=== PATIENT | female | born 1950 | race Asian ===

== ENCOUNTER → 2016-05-17 | Outpatient (CLI) | payer MEDICARE, OTHER ==
[2016-05-17 09:46] LABS: Basophils # (auto) 0 uL; Basophils % (auto) 0.4 % (0.0-2.0); DEFINITIVE VIEW TRANSMISSION; Eosinophils # (auto) 0.1 uL; Eosinophils % (auto) 1.6 % (0.0-7.0); Hematocrit 47.4 % (36.0-46.0); Hemoglobin 15.1 g/dL (12.2-16.2); Lymphocytes # (auto) 3.6 uL; Lymphocytes % (auto) 40.9 % (10.0-50.0); Mean Corpuscular Hgb Conc. 31.8 g/dL (32.0-36.0); Mean Corpuscular Volume 81.7 fL (80.0-100.0); Mean Platelet Volume 9.1 fL (7.4-10.4); Monocytes # (auto) 0.4 uL; Monocytes % (auto) 4.7 % (0.0-12.0); Neutrophils # (auto) 4.6 uL; Neutrophils % (auto) 52.4 % (37.0-80.0); Platelet Count (auto) 246 10^3/uL (140-450); Red Cell Distribution Width 13.3 % (11.6-16.0); White Blood Cell 8.7 10^3/uL (4.4-10.8)
[2016-05-17 09:56] LABS: Urine Bilirubin Negative (Negative); Urine Color Yellow (Yellow); Urine Glucose Normal (Normal); Urine Ketone Negative (Negative); Urine Nitrite Negative (Negative); Urine RBC 2 /hpf (0 - 4); Urine Urobilinogen Normal (Negative); Urine pH 5.5 (5.0-8.0)
[2016-05-17 09:57] LABS: Urine Blood 1+ /uL (Negative)
[2016-05-17 10:01] LABS: Albumin 4.3 g/dL (3.4-5.0); BUN/Creatinine Ratio 22.7; Bilirubin, Total 0.7 mg/dL (0.2-1.0); Calcium 9.5 mg/dL (8.5-10.1); Potassium 3.5 mmol/L (3.5-5.1); Total Protein 8.4 g/dL (6.4-8.2)
== END | disposition home or self-care (01) ==
LOC: LAB 07:42
PROVIDERS: ATTEND Internal Medicine
DX: Z00.00 Encounter for general adult medical examination without abnormal findings (principal)
CPT/HCPCS: 36415; 80053; 80061; 81001; 82270; 84443; 85025; 85049

== ENCOUNTER → 2017-01-09 | Outpatient (CLI) | payer MEDICARE, OTHER ==
[2017-01-09 07:42] LABS: Urine Bilirubin Negative (Negative); Urine Blood TRACE /uL (Negative); Urine Color Yellow (Yellow); Urine Glucose Normal (Normal); Urine Ketone Negative (Negative); Urine Nitrite Negative (Negative); Urine RBC 1 /hpf (0 - 4); Urine Squamous Epithelial Cell FEW /hpf (<5); Urine Urobilinogen Normal (Negative)
[2017-01-09 07:51] LABS: BUN/Creatinine Ratio 14.9; Bilirubin, Total 0.8 mg/dL (0.2-1.0); Calcium 9.1 mg/dL (8.5-10.1); Potassium 3.9 mmol/L (3.5-5.1)
== END | disposition home or self-care (01) ==
LOC: LAB 07:06
PROVIDERS: ATTEND Internal Medicine
DX: E78.2 Mixed hyperlipidemia (principal); I11.0 Hypertensive heart disease with heart failure; I50.9 Heart failure, unspecified; E55.9 Vitamin D deficiency, unspecified
CPT/HCPCS: 36415; 80053; 80061; 81001; 82306

== ENCOUNTER → 2017-06-13 | Outpatient (CLI) | payer MEDICARE, OTHER ==
[2017-06-13 16:36] LABS: Basophils # (auto) 0.1 uL; Basophils % (auto) 0.6 % (0.0-2.0); Eosinophils # (auto) 0.1 uL; Eosinophils % (auto) 1.3 % (0.0-7.0); Hematocrit 44.8 % (36.0-46.0); Hemoglobin 14.8 g/dL (12.2-16.2); Lymphocytes # (auto) 3.2 uL; Lymphocytes % (auto) 34.6 % (10.0-50.0); Mean Corpuscular Hemoglobin 27.1 pg (28.0-32.0); Mean Corpuscular Hgb Conc. 33.1 g/dL (32.0-36.0); Mean Corpuscular Volume 81.8 fL (80.0-100.0); Monocytes # (auto) 0.5 uL; Monocytes % (auto) 5.4 % (0.0-12.0); Neutrophils # (auto) 5.4 uL; Neutrophils % (auto) 58.1 % (37.0-80.0); Nucleated Red Blood Cells % 0.1 %; Platelet Count (auto) 261 10^3/uL (140-450); Red Blood Cells 5.48 10^6/uL (4.0-5.20); Red Cell Distribution Width 13.9 % (11.8-14.3); White Blood Cell 9.3 10^3/uL (4.4-10.8)
[2017-06-13 17:25] LABS: Alanine Aminotransferase 32 U/L (13-56); Aspartate Aminotransferase 22 U/L (15-37)
== END | disposition home or self-care (01) ==
LOC: LAB 15:49
PROVIDERS: ATTEND Internal Medicine
DX: E78.00 Pure hypercholesterolemia, unspecified (principal); E55.9 Vitamin D deficiency, unspecified
CPT/HCPCS: 36415; 82306; 84450; 84460; 85025; 85652

== ENCOUNTER 2018-08-09 21:43 | Emergency (ER) | payer MEDICARE, OTHER ==
[~2018-08-09] VITALS: Ht 160 cm; Wt 64.4 kg
[2018-08-09] MEDS ORDERED: cloNIDine HCL 0.1 MG TAB PO ONE (22:00)
[2018-08-09 22:11] LABS: Basophils # (auto) 0.1 uL; Monocytes # (auto) 0.8 uL; Monocytes % (auto) 7.2 % (0.0-12.0)
[2018-08-09 22:13] LABS: Basophils % (auto) 1.1 % (0.0-2.0); Eosinophils # (auto) 1.5 uL; Eosinophils % (auto) 13.2 % (0.0-7.0); Hematocrit 44.8 % (36.0-46.0); Hemoglobin 14.7 g/dL (12.2-16.2); Lymphocytes # (auto) 2.7 uL; Lymphocytes % (auto) 24.4 % (10.0-50.0); Mean Corpuscular Hemoglobin 26.8 pg (28.0-32.0); Mean Corpuscular Hgb Conc. 32.8 g/dL (32.0-36.0); Mean Corpuscular Volume 81.8 fL (80.0-100.0); Neutrophils % (auto) 54.1 % (37.0-80.0); Platelet Count (auto) 238 10^3/uL (140-450); Red Blood Cells 5.47 10^6/uL (4.0-5.20); Red Cell Distribution Width 14.1 % (11.8-14.3); White Blood Cell 11.2 10^3/uL (4.4-10.8)
[2018-08-09 22:24] LABS: Chloride 106 mmol/L (98-107); Potassium 3.8 mmol/L (3.5-5.1); Sodium 139 mmol/L (136-145)
[2018-08-09 22:28] LABS: Anion Gap 5 (5-15); Blood Urea Nitrogen 16 mg/dL (7-18); Calcium 8.9 mg/dL (8.5-10.1); Carbon Dioxide 28 mmol/L (21-32); Glucose 98 mg/dL (74-106)
[2018-08-09 22:31] LABS: Alanine Aminotransferase 25 U/L (13-56); Aspartate Aminotransferase 17 U/L (15-37); GFR African American 76 mL/min; GFR Non-African American 63 mL/min
[2018-08-09 22:36] LABS: Alkaline Phosphatase 124 U/L (45-117); Bilirubin, Total 0.5 mg/dL (0.2-1.0); Magnesium 2.4 mg/dL (1.6-2.6)
[2018-08-10] MEDS ORDERED: ALBUTEROL SULF 2.5 MG/0.5ML(0.5%) NEB SOLN NEB ONE (07:45)
[2018-08-10] MEDS ORDERED: LEVOFLOXACIN 500MG 100 ML IV ONE (07:45)
[2018-08-10 09:05] VITALS: BP 137/63
== END 2018-08-10 09:27 | disposition home or self-care (01) ==
LOC: ER 21:44
DX: J40 Bronchitis, not specified as acute or chronic (principal); I10 Essential (primary) hypertension; E78.5 Hyperlipidemia, unspecified
CPT/HCPCS: 36415; 71045; 80053; 83735; 84484; 85025; 85379; 93005; 94640; 94761; 96365; 99284; J1956; J7611

== ENCOUNTER → 2018-10-08 | Outpatient (CLI) | payer MEDICARE, OTHER | END | disposition home or self-care (01) | LOC: LAB 07:49 | PROVIDERS: ATTEND Internal Medicine | DX: Z12.11 Encounter for screening for malignant neoplasm of colon (principal) | CPT/HCPCS: 82270 ==

== ENCOUNTER → 2019-02-05 | Outpatient (CLI) | payer MEDICARE, OTHER ==
[2019-02-05 08:23] LABS: Basophils # (auto) 0.1 uL; Basophils % (auto) 0.8 % (0.0-2.0); Eosinophils # (auto) 0.3 uL; Eosinophils % (auto) 4.2 % (0.0-7.0); Hematocrit 45.9 % (36.0-46.0); Hemoglobin 15.2 g/dL (12.2-16.2); Lymphocytes # (auto) 2.8 uL; Lymphocytes % (auto) 36.5 % (10.0-50.0); Mean Corpuscular Hemoglobin 27.3 pg (28.0-32.0); Mean Corpuscular Volume 82.6 fL (80.0-100.0); Monocytes # (auto) 0.4 uL; Monocytes % (auto) 4.9 % (0.0-12.0); Neutrophils # (auto) 4.1 uL; Neutrophils % (auto) 53.6 % (37.0-80.0); Nucleated Red Blood Cells % 0.1 %; Platelet Count (auto) 236 10^3/uL (140-450); Red Blood Cells 5.56 10^6/uL (4.0-5.20); Red Cell Distribution Width 13.8 % (11.8-14.3); White Blood Cell 7.6 10^3/uL (4.4-10.8)
[2019-02-05 09:02] LABS: Calcium 9.2 mg/dL (8.5-10.1); Potassium 3.9 mmol/L (3.5-5.1)
[2019-02-05 09:09] LABS: BUN/Creatinine Ratio 13.1; Total Protein 8.1 g/dL (6.4-8.2)
== END | disposition home or self-care (01) ==
LOC: LAB 08:10
PROVIDERS: ATTEND Internal Medicine
DX: E78.1 Pure hyperglyceridemia (principal); J30.2 Other seasonal allergic rhinitis
CPT/HCPCS: 36415; 80053; 80061; 82977; 84439; 84443; 85025

== ENCOUNTER → 2019-08-02 | Outpatient (CLI) | payer MEDICARE, OTHER ==
[2019-08-02 10:41] LABS: Band Neutrophils % (manual) 0; Basophils % (manual) 0 (0.0-2.0); Blast Cells 0; Metamyelocytes % 0; Myelocytes % 0; Promyelocytes % 0
[2019-08-02 10:49] LABS: Hematocrit 45.6 % (36.0-46.0); Hemoglobin 15.1 g/dL (12.2-16.2); Mean Corpuscular Hgb Conc. 33.1 g/dL (32.0-36.0); Mean Corpuscular Volume 81.6 fL (80.0-100.0); Platelet Count (auto) 215 10^3/uL (140-450); Red Blood Cells 5.59 10^6/uL (4.0-5.20); Red Cell Distribution Width 13.7 % (11.8-14.3); White Blood Cell 9.1 10^3/uL (4.4-10.8)
[2019-08-02 11:04] LABS: Alanine Aminotransferase 18 U/L (13-56); Aspartate Aminotransferase 14 U/L (15-37)
[2019-08-02 11:18] LABS: Eosinophils % (manual) 10 (0-7); Lymphocytes % (manual) 33 (10.0-50.0); Monocytes % (manual) 5 (0-12); Reactive Lymphocytes 1
== END | disposition home or self-care (01) ==
LOC: LAB 10:26
PROVIDERS: ATTEND Internal Medicine
DX: E78.00 Pure hypercholesterolemia, unspecified (principal)
CPT/HCPCS: 36415; 84450; 84460; 85007; 85027; 85652

== ENCOUNTER → 2020-08-13 | Outpatient (CLI) | payer MEDICARE, OTHER ==
[2020-08-13 09:23] LABS: Basophils # (auto) 0.1 10 ^3/uL (0-0.2); Eosinophils # (auto) 0.7 10 ^3/uL (0-0.8); Monocytes # (auto) 0.4 10 ^3/uL (0-1.3); White Blood Cell 8.6 10^3/uL (4.4-10.8)
[2020-08-13 09:24] LABS: Urine Bacteria NONE SEEN /hpf (None Seen); Urine Blood 2+ /uL (Negative); Urine Specific Gravity 1.013 (1.001-1.035); Urine WBC 1 /hpf (0 - 5)
[2020-08-13 09:25] LABS: Basophils % (auto) 1.2 % (0.0-2.0); Eosinophils % (auto) 8.3 % (0.0-7.0); Hematocrit 45.3 % (36.0-46.0); Hemoglobin 15.2 g/dL (12.2-16.2); Lymphocytes % (auto) 35.4 % (10.0-50.0); Mean Corpuscular Hemoglobin 27.3 pg (28.0-32.0); Mean Corpuscular Hgb Conc. 33.6 g/dL (32.0-36.0); Mean Corpuscular Volume 81.3 fL (80.0-100.0); Monocytes % (auto) 4.4 % (0.0-12.0); Neutrophils # (auto) 4.4 10 ^3/uL (1.6-8.6); Neutrophils % (auto) 50.7 % (37.0-80.0); Nucleated Red Blood Cells % 0.3 %; Platelet Count (auto) 234 10^3/uL (140-450); Red Blood Cells 5.58 10^6/uL (4.0-5.20); Red Cell Distribution Width 13.8 % (11.8-14.3)
[2020-08-13 09:47] LABS: Albumin 3.9 g/dL (3.4-5.0); Calcium 9.4 mg/dL (8.5-10.1); Potassium 3.7 mmol/L (3.5-5.1)
[2020-08-13 09:51] LABS: BUN/Creatinine Ratio 14.1; Bilirubin, Total 0.7 mg/dL (0.2-1.0); Total Protein 7.8 g/dL (6.4-8.2)
== END | disposition home or self-care (01) ==
LOC: LAB 08:59
PROVIDERS: ATTEND Internal Medicine
DX: M81.0 Age-related osteoporosis without current pathological fracture (principal); J30.2 Other seasonal allergic rhinitis; E78.5 Hyperlipidemia, unspecified; E56.9 Vitamin deficiency, unspecified; E78.00 Pure hypercholesterolemia, unspecified
CPT/HCPCS: 36415; 80053; 80061; 81001; 82306; 82785; 84439; 84443; 85025; 85652

== ENCOUNTER → 2021-01-25 | Outpatient (CLI) | payer MEDICARE, OTHER ==
[2021-01-25 10:30] LABS: Basophils # (auto) 0.1 10 ^3/uL (0-0.2); Basophils % (auto) 0.7 % (0.0-2.0); Eosinophils # (auto) 0.2 10 ^3/uL (0-0.8); Eosinophils % (auto) 2.8 % (0.0-7.0); Hematocrit 45.5 % (36.0-46.0); Hemoglobin 15.1 g/dL (12.2-16.2); Lymphocytes # (auto) 2.8 10 ^3/uL (0.4-5.4); Lymphocytes % (auto) 38.7 % (10.0-50.0); Mean Corpuscular Hgb Conc. 33.3 g/dL (32.0-36.0); Mean Corpuscular Volume 81.1 fL (80.0-100.0); Monocytes # (auto) 0.4 10 ^3/uL (0-1.3); Monocytes % (auto) 5.2 % (0.0-12.0); Neutrophils # (auto) 3.9 10 ^3/uL (1.6-8.6); Neutrophils % (auto) 52.6 % (37.0-80.0); Nucleated Red Blood Cells % 0.1 %; Red Blood Cells 5.62 10^6/uL (4.0-5.20); Red Cell Distribution Width 14.1 % (11.8-14.3); White Blood Cell 7.3 10^3/uL (4.4-10.8)
[2021-01-25 11:10] LABS: Calcium 9.2 mg/dL (8.5-10.1); Potassium 3.9 mmol/L (3.5-5.1)
[2021-01-25 11:15] LABS: BUN/Creatinine Ratio 15.1
[2021-01-25 11:16] LABS: Bilirubin, Total 0.8 mg/dL (0.2-1.0)
== END | disposition home or self-care (01) ==
LOC: LAB 10:01
PROVIDERS: ATTEND Internal Medicine
DX: K11.20 Sialoadenitis, unspecified (principal)
CPT/HCPCS: 36415; 80053; 85025; 85652; 86235

== ENCOUNTER → 2021-07-29 | Outpatient (CLI) | payer MEDICARE, OTHER | END | disposition home or self-care (01) | LOC: LAB 09:02 | PROVIDERS: ATTEND Internal Medicine | DX: Z12.11 Encounter for screening for malignant neoplasm of colon (principal) | CPT/HCPCS: 82270 ==

== ENCOUNTER → 2022-12-13 | Outpatient (CLI) | payer MEDICARE, OTHER ==
[2022-12-13 08:17] LABS: Basophils # (auto) 0 10 ^3/uL (0-0.2); Eosinophils # (auto) 0.2 10 ^3/uL (0-0.8); Hemoglobin 14.5 g/dL (12.2-16.2); Monocytes # (auto) 0.5 10 ^3/uL (0-1.3); Neutrophils # (auto) 4.8 10 ^3/uL (1.6-8.6)
[2022-12-13 08:19] LABS: Basophils % (auto) 0.4 % (0.0-2.0); Eosinophils % (auto) 2.5 % (0.0-7.0); Hematocrit 44.3 % (36.0-46.0); Lymphocytes % (auto) 35.5 % (10.0-50.0); Mean Corpuscular Hemoglobin 26.5 pg (28.0-32.0); Mean Corpuscular Hgb Conc. 32.8 g/dL (32.0-36.0); Mean Corpuscular Volume 80.8 fL (80.0-100.0); Monocytes % (auto) 5.4 % (0.0-12.0); Neutrophils % (auto) 56.2 % (37.0-80.0); Nucleated Red Blood Cells % 0.5 %; Red Blood Cells 5.48 10^6/uL (4.0-5.20); Red Cell Distribution Width 13.9 % (11.8-14.3); White Blood Cell 8.6 10^3/uL (4.4-10.8)
[2022-12-13 09:01] LABS: Urine Bacteria NONE SEEN /hpf (None Seen); Urine Blood 1+ /uL (Negative); Urine Clarity Clear (Clear); Urine Color Yellow (Yellow); Urine Protein, UAD TRACE (Negative); Urine Urobilinogen Normal (Negative); Urine WBC 3 /hpf (0 - 5)
[2022-12-13 09:18] LABS: Potassium 4.2 mmol/L (3.5-5.1)
[2022-12-13 09:44] LABS: Albumin 3.9 g/dL (3.4-5.0); BUN/Creatinine Ratio 17.3 (10.0-20.0); Bilirubin, Total 0.9 mg/dL (0.2-1.0); Calcium 9.1 mg/dL (8.7-10.4); Total Protein 7.4 g/dL (6.4-8.2)
[2022-12-13 09:51] LABS: Erythrocyte Sedimentation Rate 7 mm/hr (0-20)
== END | disposition home or self-care (01) ==
LOC: LAB 08:00
PROVIDERS: ATTEND Internal Medicine
DX: E55.9 Vitamin D deficiency, unspecified (principal); E78.5 Hyperlipidemia, unspecified
CPT/HCPCS: 36415; 80053; 80061; 81001; 82270; 82306; 84439; 84443; 85025; 85652

== ENCOUNTER → 2023-05-29 | Outpatient (CLI) | payer MEDICARE, OTHER ==
[2023-05-29 14:51] LABS: Alanine Aminotransferase 15 U/L (7-40); Alkaline Phosphatase 80 U/L (46-116); Anion Gap 5 (5-15); Blood Urea Nitrogen 11 mg/dL (9-23); Calcium 9.6 mg/dL (8.5-10.1); Carbon Dioxide 28 mmol/L (20-30); Chloride 108 mmol/L (98-107); Glucose 80 mg/dL (74-106); Potassium 3.9 mmol/L (3.5-5.1); Sodium 141 mmol/L (136-145)
[2023-05-29 14:52] LABS: Albumin 4.7 g/dL (3.2-4.8); Aspartate Aminotransferase 20 U/L (13-40); Bilirubin, Total 0.8 mg/dL (0.2-1.0)
[2023-05-29 14:53] LABS: Total Protein 8.1 g/dL (5.7-8.2)
[2023-06-02 22:06] LABS: Vitamin D 25-Hydroxy 31 ng/mL (.); Vitamin D-2 25-Hydroxy <1.0 ng/mL (.); Vitamin D-3 25-Hydroxy 31 ng/mL (.)
== END | disposition home or self-care (01) ==
LOC: LAB 13:43
PROVIDERS: ATTEND Internal Medicine
DX: E55.9 Vitamin D deficiency, unspecified (principal); E78.00 Pure hypercholesterolemia, unspecified
CPT/HCPCS: 36415; 80053; 82306; 84439; 84443

== ENCOUNTER → 2023-12-11 | Outpatient (CLI) | payer MEDICARE, OTHER ==
[2023-12-11 08:26] LABS: Urine Bacteria None Seen /hpf (None Seen)
[2023-12-11 08:41] LABS: Basophils # (auto) 0 10 ^3/uL (0-0.2); Basophils % (auto) 0.6 % (0.0-2.0); Eosinophils # (auto) 0.3 10 ^3/uL (0-0.8); Eosinophils % (auto) 3.4 % (0.0-7.0); Hematocrit 45.1 % (36.0-46.0); Hemoglobin 14.8 g/dL (12.2-16.2); Lymphocytes # (auto) 2.8 10 ^3/uL (0.4-5.4); Lymphocytes % (auto) 35.1 % (10.0-50.0); Mean Corpuscular Hemoglobin 27.1 pg (28.0-32.0); Mean Corpuscular Hgb Conc. 32.9 g/dL (32.0-36.0); Mean Corpuscular Volume 82.6 fL (80.0-100.0); Monocytes # (auto) 0.4 10 ^3/uL (0-1.3); Monocytes % (auto) 4.6 % (0.0-12.0); Neutrophils # (auto) 4.5 10 ^3/uL (1.6-8.6); Neutrophils % (auto) 56.3 % (37.0-80.0); Red Blood Cells 5.46 10^6/uL (4.0-5.20); Red Cell Distribution Width 14.4 % (11.8-14.3); White Blood Cell 7.9 10^3/uL (4.4-10.8)
[2023-12-11 08:54] LABS: Urine Blood 1+ /uL (Negative); Urine Clarity Clear (Clear); Urine Color Light-Yellow (Yellow); Urine Protein, UAD Negative (Negative); Urine Specific Gravity 1.021 (1.001-1.035); Urine Urobilinogen Normal (Negative); Urine WBC 2 /hpf (0 - 5)
[2023-12-11 09:31] LABS: Erythrocyte Sedimentation Rate 10 mm/hr (0-20)
[2023-12-11 10:15] LABS: Alanine Aminotransferase 20 U/L (7-40); Albumin 4.4 g/dL (3.2-4.8); Alkaline Phosphatase 87 U/L (46-116); Anion Gap 2 (5-15); Aspartate Aminotransferase 16 U/L (13-40); Bilirubin, Total 0.9 mg/dL (0.2-1.0); Blood Urea Nitrogen 15 mg/dL (9-23); Calcium 9.7 mg/dL (8.7-10.4); Carbon Dioxide 28 mmol/L (20-30); Chloride 107 mmol/L (98-107); Cholesterol 201 mg/dL (< 200); Glucose 101 mg/dL (74-106); HDL Cholesterol 61 mg/dL (40-59); LDL Cholesterol 113 mg/dL (< 100); Sodium 137 mmol/L (136-145); Total Protein 7.5 g/dL (5.7-8.2); Triglycerides 142 mg/dL (< 150)
[2023-12-11 10:44] LABS: Free T4 (Free Thyroxine) 1.09 ng/dL (0.89-1.76)
[2023-12-11 11:00] LABS: Hepatitis B Surface Antibody Negative (Negative)
[2023-12-11 11:10] LABS: Hepatitis B Surface Antigen Negative (Negative)
[2023-12-11 11:32] LABS: Hepatitis B Core IgM Negative; Hepatitis C Antibody Negative (Negative)
[2023-12-12 07:07] LABS: Hepatitis B Core Total Antibod Negative (Negative)
[2023-12-12 08:06] LABS: Albumin 3.7 g/dL (2.9-4.4); Alpha-1-Globulin 0.2 g/dL (0.0-0.4); Alpha-2-Globulin 0.6 g/dL (0.4-1.0); Gamma Globulin 1.5 g/dL (0.4-1.8); Globulin Total 3.6 g/dL (2.2-3.9); Protein Total Serum 7.3 g/dL (6.0-8.5)
== END | disposition home or self-care (01) ==
LOC: LAB 08:10
PROVIDERS: ATTEND Internal Medicine
DX: Z12.11 Encounter for screening for malignant neoplasm of colon (principal); E78.00 Pure hypercholesterolemia, unspecified; E55.9 Vitamin D deficiency, unspecified; M79.2 Neuralgia and neuritis, unspecified
CPT/HCPCS: 36415; 80053; 80061; 81001; 82270; 82306; 82607; 84155; 84165; 84439; 84443; 85025; 85652; 86705; 86706; 86803; 87340

== ENCOUNTER 2024-10-28 08:29 | Inpatient (IN) | payer MEDICARE, OTHER ==
[~2024-10-28] VITALS: Ht 160 cm; Wt 67.7 kg
[2024-10-28] MEDS: SODIUM CHLORIDE 0.9% 1,000 ML IV ONE (08:45)
--- NOTE | 2024-10-28 08:46 | ED.PDOC ---
HPI (NEURO) HPI Comments 74 y/o F, with PMHx of HLD presents to the ED for CC of left sided headache. Patient states, she has been experiencing left-sided headache with associated left sided facial [id number]. Patient reports, associated symptoms of bilateral eye watering and difficulty when closing. Upon arrival to the ED, patient was found to be hypertensive with a blood pressure of 199/90mmHg; patient moved to Tx area for further care. Patient denies weakness, changes in gait, dizziness, nausea, or vomiting. No other symptoms or modifying factors present at this time. Time Seen by MD: 08:35 Primary Care Provider: KYLEK Reviewed Notes: Nurses Notes, Medications, Allergies Information Source: Patient Mode of Arrival: Ambulatory Severity: Moderate Headache Severity: Moderate Timing: Days Duration: Since onset Prehospital treatment: None Headache Location: Generalized Weakness Location: (L) Sided, Facial Onset: At rest Circumstances: Spontaneous Symptoms: None Before: Normal During: Awake After: Normal Mentation History of: None Modifying factors: Nothing Past Medical History PAST MEDICAL HISTORY: High Lipids Surgical History: CORK SLABS SAWYER History: No Pertinent C[employer] SAWYER History Family History Family History: Unknown Social History Smoker: Non-Smoker Alcohol: Denies ETOH Use Drugs: Denies Drug Use Lives In: Home Constitutional: denies: chills, diaphoresis, fatigue, fever, malaise, sweats, weakness, others EENTM: denies: blurred vision, double vision, ear bleeding, ear discharge, ear drainage, ear pain, ear ringing, eye pain, eye redness, hearing loss, mouth pain, mouth swelling, nasal discharge, nose bleeding, nose congestion, nose pain, photophobia, tearing, throat pain, throat swelling, voice changes, others Respiratory: denies: cough, hemoptysis, orthopnea, SOB at rest, shortness of breath, SOB with excertion, stridor, wheezing, others Cardiovascular: denies: chest pain, dizzy spells, diaphoresis, Dyspnea on exertion, edema, irregular heart beat, left arm pain, lightheadedness, palpitations, PND, syncope, others Gastrointestinal: denies: abdomen distended, abdominal pain, blood streaked bowels, constipated, diarrhea, dysphagia, difficulty swallowing, hematemesis, melena, nausea, poor appetite, poor fluid intake, rectal bleeding, rectal pain, vomiting, others Genitourinary: denies: abnormal vagina bleeding, burning, dyspareunia, dysuria, flank pain, frequency, hematuria, incontinence, pain, , vagina discharge, urgency, others Neurological: reports: headache; denies: dizziness, fainting, left sided numbness, left sided weakness, numbness, paresthesia, pre-existing deficit, right sided numbness, right sided weakness, seizure, speech problems, tingling, tremors, weakness, others Musculoskeletal: denies: back pain, gout, joint pain, joint swelling, muscle pain, muscle stiffness, neck pain, others Integumetry: denies: bruises, change in color, change in hair/nails, dryness, laceration, lesions, lumps, rash, wounds, others Allergic/Immunocompromised: denies: Difficulty Healing, Frequent Infections, Hives, Itching, others Hematologic/Lymphatic: denies: anemia, blood clots, easy bleeding, easy bruising, swollen glands, others Endocrine: denies: excessive hunger, excessive sweating, excessive thirst, excessive urination, flushing, intolerance to cold, intolerance to heat, unexplained weight gain, unexplained weight loss, others Psychiatric: denies: anxiety, bipolar disorder, depression, hopeless, panic disorder, schizophrenia, sleepless, suicidal, others All Other Systems: Reviewed and Negative Physical Exam General Appearance: No Apparent Distress, Normal HEENT: Normal ENT Inspection, Pharynx Normal Neck: Full Range of Motion, Non-Tender, Normal, Normal Inspection Respiratory: Chest Non-Tender, Lungs Clear, No Accessory Muscle Use, No Respiratory Distress, Normal Breath Sounds Cardiovascular: No Edema, No Murmur, No Gallop, Normal Peripheral Pulses, Regular Rate/Rhythm Breast Exam: Deferred Gastrointestinal: No Organomegaly, Non Tender, No Pulsatile Mass, Normal Bowel Sounds, Soft Genitalia: Deferred Pelvic: Deferred Rectal: Deferred Extremities: No calf tenderness, Normal capillary refill, Normal inspection, Normal range of motion, Non-tender, No pedal edema Musculoskeletal : Apperance: Normal Neurologic: Alert, radiology teacher II-XII nml as Tested, Facial Droop (left sided/ left forehead), Normal Affect, Normal Mood, No Sensory Deficits, Other (difficulty closing eyes) Cerebellar Function: Normal Reflexes: Normal Skin: Dry, Normal Color, Warm Lymphatic: No Adenopathy Was a procedure done? Was a procedure done?: No Differential Diagnosis (SZ) Seizure: N/A CVA: Park's Palsy, CVA, Electrolyte Imbalance, TIA General Weakness: N/A Headache: Migraine X-Ray, Labs, Meds, VS Vital Signs Date Time Temp Pulse Resp B/P (MAP) Pulse Ox O2 Delivery O2 Flow Rate FiO2 10/28/24 09:51 Room Air* 0 21 10/28/24 09:51 98.4 79 14 174/59 (97) 97 98.4 10/28/24 09:50 174/59 10/28/24 09:50 98.5 10/28/24 08:42 98.7 89 17 186/104 (131) 96 98.7 Lab Test 10/28/24 09:23 Range/Units White Blood Count 7.8 4.4-10.8 10^3/uL Red Blood Count 5.63 H 4.0-5.20 10^6/uL Hemoglobin 15.2 12.2-16.2 g/dL Hematocrit 45.4 36.0-46.0 % Mean Corpuscular Volume 80.6 80.0-100.0 fL Mean Corpuscular Hemoglobin 27.0 L 28.0-32.0 pg Mean Corpuscular Hemoglobin Concent 33.5 32.0-36.0 g/dL Red Cell Distribution Width 14.1 11.8-14.3 % Platelet Count 230 140-450 10^3/uL Mean Platelet Volume 7.7 6.9-10.8 fL Neutrophils (%) (Auto) 61.9 37.0-80.0 % Lymphocytes (%) (Auto) 29.0 10.0-50.0 % Monocytes (%) (Auto) 5.7 0.0-12.0 % Eosinophils (%) (Auto) 2.9 0.0-7.0 % Basophils (%) (Auto) 0.5 0.0-2.0 % Neutrophils # (Auto) 4.8 1.6-8.6 10 ^3/uL Lymphocytes # (Auto) 2.3 0.4-5.4 10 ^3/uL Monocytes # (Auto) 0.4 0-1.3 10 ^3/uL Eosinophils # (Auto) 0.2 0-0.8 10 ^3/uL Basophils # (Auto) 0 0-0.2 10 ^3/uL Nucleated Red Blood Cells 0.0 % Sodium Level 142 136-145 mmol/L Potassium Level 4.1 3.5-5.1 mmol/L Chloride Level 108 H 98-107 mmol/L Carbon Dioxide Level 23 20-31 mmol/L Anion Gap 11 5-15 Blood Urea Nitrogen 11 9-23 mg/dL Creatinine 0.87 0.550-1.02 mg/dL Glomerular Filtration Rate Calc 69 >90 mL/min BUN/Creatinine Ratio 12.6 10.0-20.0 Serum Glucose 103 74-106 mg/dL Calcium Level 10.0 8.7-10.4 mg/dL Troponin I High Sensitivity 4 </=34 ng/L Current Medications Medications (Trade) Dose Ordered Sig/[place] Route Start Time Stop Time Status Last Admin Sodium Chloride 1,000 ml @ 1,000 mls/hr Q1H ONCE IV 10/28/24 08:45 10/28/24 09:44 DC 10/28/24 08:45 Acetaminophen (Tylenol Tablet) 650 mg ONCE ONCE PO 10/28/24 08:45 10/28/24 08:46 DC 10/28/24 09:50 Hydralazine HCl (Apresoline Injection) 10 mg ONCE ONCE IV 10/28/24 08:45 10/28/24 08:46 DC 10/28/24 09:50 Time of 1ST Reevaluation: 09:05 Reevaluation 1ST: Unchanged Patient Education/Counseling: Diagnosis, Treatment Family Education/Counseling: No Family Present Departure 1 Departure Time of Disposition: 10:38 (Patient presented with hypertension and symptoms concerning for hypertensive emergency. Patient is receiving iv blood pressure medications requiring intensive monitoring. Data: 1. I ordered and reviewed the result of at least 3 labs including a CBC, BMP, and Urinalysis. 2. I independently interpreted the following tests: CT Brain: Which appears benign. EKG which is Normal Sinus RhythmRisk:This patient has a high risk of morbidity due to further diagnostic testing or treatment and may suffer from an acute cardiac disorder. Workup reveals hypertensive emergency and patient should be admitted for further workup. and possible expert consultation. Patient likely with Park's palsy given that she has left-sided facial droop that involves the left eyelid and also involves the forehead. We will empirically cover patient with the acyclovir and admit patient for further workup) Impression: Primary Impression: Hypertensive emergency Additional Impressions: Park's palsy Facial droop Migraine Qualified Codes: G43.109 - Migraine with aura, not intractable, without status migrainosus Disposition: ADMITTED INPATIENT Admit to: Med Surg Condition: Serious Critical Care Note Critical Care Time?: Yes Critical care comment: Hypertensive emergency Authorized and Performed by: Gilbert Valentin MD Total critical care time: Approximately 48 minutes Due to a high probability of clinically significant, life threatening deterioration, the patient required my highest level of preparedness to intervene emergently and I personally spent this critical care time directly and personally managing the patient. This critical care time included obtaining a history; examining the patient; pulse oximetry; ordering and review of studies; arranging urgent treatment with development of a management plan; evaluation of patient's response to treatment; frequent reassessment; and, discussions with other providers. This critical care time was performed to assess and manage the high probability of imminent, life-threatening deterioration that could result in multi-organ failure. It was exclusive of separately billable procedures and treating other patients and teaching time. Please see my other sections and the rest of the note for further information on patient assessment and treatment. Stability Stability form required: No Heart Score Heart Score: Heart Score Response (Comments) Value History N/A 0 EKG N/A 0 Age N/A 0 Risk Factors N/A 0 Troponin N/A 0 Total 0 I personally scribed for GILBERT VALENTIN MD ([email or web address]) on 10/28/24 at 08:46. Electronically submitted by Eve Garcia ([email or web address]). GILBERT VALENTIN MD Oct 28, 2024 08:46
--- NOTE | 2024-10-28 09:27 | DVH ---
EXAM: CT HEAD WITHOUT CONTRAST INDICATION: left sided facial droop TECHNIQUE: CT of the head without intravenous contrast. Radiation Dose : 1. Head: CT Dose: CTDI volume is 51.33 mGy. Dose-length product is 908.99 mGy*cm The dose indicators for CT are the volume Computed Tomography (CT) Dose Index (CTDIvol) and the Dose Length Product (DLP), and are measured in units of mGy and mGy-cm, respectively. These indicators are not patient dose, but values generated from the CT scanner acquisition factors. The report includes radiation exposure data for exposures received during this examination. COMPARISON: None FINDINGS: There is no evidence of acute intracranial hemorrhage, extra-axial collection, mass effect, midline s hift, herniation or hydrocephalus. The ventricles, sulci and cisterns are age appropriate. The gregory-white differentiation is intact. Patchy periventricular and subcortical white matter hypoattenuation is nonspecific but may be related to small vessel ischemic disease. The visualized paranasal sinuses and mastoid air cells are clear. The surrounding soft tissues and osseous structures are unremarkable. IMPRESSION: No acute intracranial abnormality. Radiation optimization: All CT scans at this facility use at least one of these dose optimization sarthak hniques: automated exposure control mA and/or kV adjustment per patient size (includes targeted exam s where dose is matched to clinical indication) or iterative reconstruction.
--- NOTE | 2024-10-28 09:28 | DVH ---
CHEST RADIOGRAPH Indication: left sided facial droop Technique: Single frontal view of the chest was obtained COMPARISON: None FINDINGS: Lines and Tubes: None Lungs: Clear Pleura: No effusion. No pneumothorax. Cardiomediastinal contours: Unremarkable Bones: Unremarkable IMPRESSION: No acute disease.
[2024-10-28 09:43] LABS: Hematocrit 45.4 % (36.0-46.0); Hemoglobin 15.2 g/dL (12.2-16.2); Mean Corpuscular Hemoglobin 27.0 pg (28.0-32.0); Mean Corpuscular Volume 80.6 fL (80.0-100.0); Nucleated Red Blood Cells % 0.0 %
[2024-10-28] MEDS: ACETAMINOPHEN 325 MG TAB PO ONE (09:50)
[2024-10-28] MEDS: hydrALAZINE HCL 20 MG/ML VL IV ONE (09:50)
[2024-10-28 09:52] LABS: Potassium 4.1 mmol/L (3.5-5.1); Sodium 142 mmol/L (136-145)
[2024-10-28 09:53] LABS: Anion Gap 11 (5-15); Calcium 10.0 mg/dL (8.7-10.4); Carbon Dioxide 23 mmol/L (20-31)
[2024-10-28 09:58] LABS: BUN/Creatinine Ratio 12.6 (10.0-20.0); Blood Urea Nitrogen 11 mg/dL (9-23); Glucose 103 mg/dL (74-106)
[2024-10-28 09:59] LABS: Chloride 108 mmol/L (98-107)
[2024-10-28] MEDS ORDERED: ACYCLOVIR SOD 50MG/ML 800 MG in SODIUM CHL 0.9% 250 ML IV ONE (10:45)
[2024-10-28] MEDS: ACYCLOVIR SOD 50MG/ML 500 MG in D5W 5% 100 ML IV ONE (12:18)
[2024-10-28 12:27] LABS: Urine Protein, UAD Negative (Negative)
[2024-10-28] MEDS ORDERED: DOCUSATE SOD 100 MG CAP PO PRN (13:30)
[2024-10-28] MEDS ORDERED: ATOR10TA52 PO (13:30)
[2024-10-28] MEDS ORDERED: MORPHINE SULFATE INJ 2 MG/ml SYRG IV PRN (13:30)
[2024-10-28] MEDS ORDERED: NITROGLYCERIN 0.4 MG SL TAB SL PRN (13:30)
--- NOTE | 2024-10-28 13:39 | DVHHP2 ---
History of Present Illness Reason for Visit: Left sided weakness History of Present Illness Carmen Padilla is a 74-year-old female with past medical history of hypertension, and hyperlipidemia who came to the hospital due to left facial droop. Patient states she began having a left sided headache on Monday and on Monday she started having left facial droop and blurry vision. Her symptoms were not improving over the weekend so she came to the hospital. Cardiovascular: hyperipidemia Past Surgical History: Cholecystectomy, (x 2), Hysterectomy Smoke: No ALCOHOL: none Drugs: None Lives: with Family Domestic Violence: Neg Review of Systems Constitutional: Yes: Other (left headache); No: Fever, Chills, Sweats, Weakness, Malaise Eyes: No: Pain, Vision change, Conjunctivae inflammation, Eyelid inflammation, Other, Redness ENT: No: Ear pain, Ear discharge, Nose pain, Nose discharge, Nose congestion, Mouth pain, Mouth swelling, Throat pain, Throat swelling, Other Respiratory: No: Cough, Dry, Shortness of breath, SOB with excertion, Wheezing, Hemoptysis, Pleuritic Pain, Sputum, Wheezing, Other Cardiovascular: No: Chest Pain, Palpitations, Orthopnea, Paroxysmal Noc. Dyspnea, Edema, Lt Headedness, Other Gastrointestinal: No: Nausea, Vomiting, Abdominal Pain, Diarrhea, Constipation, Melena, Hematochezia, Other Genitourinary: No Dysuria, No Frequency, No Incontinence, No Hematuria, No Retention, No Other Musculoskeletal: No: other, neck pain, shoulder pain, arm pain, back pain, hand pain, leg pain, foot pain Skin: No: Rash, Lesions, Jaundice, Bruising, Other Neurological: Other (left facila droop, numbness of left side of face); No: Weakness, Numbness, Incoordination, Change in speech, Confusion, Seizures Allergies: Coded Allergies: Codeine (Verified Allergy, Unknown, 07/04/13) Iodine (Verified Allergy, Unknown, 07/04/13) Penicillins (Verified Allergy, Unknown, 07/04/13) Exam Vital Signs Vital Signs Date Time Temp Pulse Resp B/P (MAP) Pulse Ox O2 Delivery O2 Flow Rate FiO2 10/28/24 09:51 Room Air* 0 21 10/28/24 09:51 98.4 79 14 174/59 (97) 97 98.4 General Appearance: Alert, Oriented X3, Cooperative, mild distress HEENT: Atraumatic, PERRLA, Mucous membr. moist/pink Respiratory: Clear to auscultation, Normal air movement Cardiovascular: Regular rate, Normal S1, Normal S2, No murmurs Abdominal: Normal bowel sounds, Soft, No tenderness, No hepatospenomegaly Extremities: No clubbing, No cyanosis, No edema, Normal pulses, No tenderness/swelling Skin: No rashes, No breakdown, No significant lesion Neuro: Normal gait, Normal speech, Strength at 5/5 X4 ext, Normal tone, Other (left sided facial droop) Psych/Mental Status: Mental status NL, Mood NL Labs/Xrays Labs Test 10/28/24 10:43 10/28/24 09:23 10/28/24 08:42 Range/Units Troponin I High Sensitivity 3 L </=34 ng/L White Blood Count 7.8 4.4-10.8 10^3/uL Red Blood Count 5.63 H 4.0-5.20 10^6/uL Hemoglobin 15.2 12.2-16.2 g/dL Hematocrit 45.4 36.0-46.0 % Mean Corpuscular Volume 80.6 80.0-100.0 fL Mean Corpuscular Hemoglobin 27.0 L 28.0-32.0 pg Mean Corpuscular Hemoglobin Concent 33.5 32.0-36.0 g/dL Red Cell Distribution Width 14.1 11.8-14.3 % Platelet Count 230 140-450 10^3/uL Mean Platelet Volume 7.7 6.9-10.8 fL Neutrophils (%) (Auto) 61.9 37.0-80.0 % Lymphocytes (%) (Auto) 29.0 10.0-50.0 % Monocytes (%) (Auto) 5.7 0.0-12.0 % Eosinophils (%) (Auto) 2.9 0.0-7.0 % Basophils (%) (Auto) 0.5 0.0-2.0 % Neutrophils # (Auto) 4.8 1.6-8.6 10 ^3/uL Lymphocytes # (Auto) 2.3 0.4-5.4 10 ^3/uL Monocytes # (Auto) 0.4 0-1.3 10 ^3/uL Eosinophils # (Auto) 0.2 0-0.8 10 ^3/uL Basophils # (Auto) 0 0-0.2 10 ^3/uL Nucleated Red Blood Cells 0.0 % Sodium Level 142 136-145 mmol/L Potassium Level 4.1 3.5-5.1 mmol/L Chloride Level 108 H 98-107 mmol/L Carbon Dioxide Level 23 20-31 mmol/L Anion Gap 11 5-15 Blood Urea Nitrogen 11 9-23 mg/dL Creatinine 0.87 0.550-1.02 mg/dL Glomerular Filtration Rate Calc 69 >90 mL/min BUN/Creatinine Ratio 12.6 10.0-20.0 Serum Glucose 103 74-106 mg/dL Calcium Level 10.0 8.7-10.4 mg/dL Urine Color Colorless Yellow Urine Clarity Clear Clear Urine pH 7.0 5.0-9.0 Urine Specific Pierce 1.007 1.001-1.035 Urine Protein Negative Negative Urine Ketones Negative Negative Urine Blood Negative Negative /uL Urine Nitrite Negative Negative Urine Bilirubin Negative Negative Urine Urobilinogen Normal Negative mg/dL Urine Leukocyte Esterase 1+ Negative /uL Urine RBC 2 0 - 4 /hpf Urine Microscopic WBC 6 H 0-5 /HPF Urine Squamous Epithelial Cells None seen <5 /hpf Urine Bacteria None seen None Seen /hpf Urine Glucose Normal Normal mg/dL CHEST RADIOGRAPH FINDINGS: Lines and Tubes: None Lungs: Clear Pleura: No effusion. No pneumothorax. Cardiomediastinal contours: Unremarkable Bones: Unremarkable IMPRESSION: No acute disease. EXAM: CT HEAD WITHOUT CONTRAST INDICATION: left sided facial droop FINDINGS: There is no evidence of acute intracranial hemorrhage, extra-axial collection, mass effect, midline shift, herniation or hydrocephalus. The ventricles, sulci and cisterns are age appropriate. The gregory-white differentiation is intact. Patchy periventricular and subcortical white matter hypoattenuation is nonspecific but may be related to small vessel ischemic disease. The visualized paranasal sinuses and mastoid air cells are clear. The surrounding soft tissues and osseous structures are unremarkable. IMPRESSION: No acute intracranial abnormality. 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 Procedure Category Date Status Time Admit ADMIT 7/7/25 Transmitted 13:28 Code Status CODE 10/28/24 Transmitted 13:28 2 Gm Sodium Diet DIET 10/28/24 Transmitted Lunch Hydrocodone-Acet PHA 10/28/24 Transmitted 5/325mg Tab ([place] 13:30 Ondansetron Hcl [facility] 10/28/24 Transmitted (Zofran) 13:30 Docusate Sodium [facility] 10/28/24 Transmitted Capsule (Colace 13:30 Complete Blood Count LAB 10/29/24 Verified 04:00 Comprehensive LAB 10/29/24 Verified Metabolic Panel 04:00 Condition: Serious MELI 10/28/24 In Process 13:28 Acetaminophen Tablet [facility] 10/28/24 Transmitted (Tylenol Tablet) 13:30 Nitroglycerin [facility] 10/28/24 Transmitted Sublingual (Ntrostat 13:30 Morphine Sulfate [facility] 10/28/24 Transmitted Injection 13:30 Stat Ekg For Chest [facility] 10/28/24 In Process Pain 13:28 Notify Md Of Changes [facility] 10/28/24 In Process From Base 13:28 Primary Care Nurse For [facility] 10/28/24 In Process 24 Hours 13:28 Emergency Dysrhythmia [facility] 10/28/24 In Process Protocol 13:28 Rhythm Strips Once [facility] 10/28/24 In Process Every Shift 13:28 Oxygen By Nasal RT 10/28/24 Transmitted Cannula 13:28 (Nf) Atorvastatin PHA 10/28/24 Verified Calcium 22:00 Date of Service: Oct 28, 2024 Billing Provider: LUPE LUNA Common Visit Codes: [id number] INP/OBS CARE (MOD) LUPE LUNA Oct 28, 2024 13:39
[2024-10-28 17:08] VITALS: BP 152/76; PULSE 80; RESP 12; TEMP 98.1; O2SAT 97
[2024-10-28 17:20] VITALS: BP 151/64; PULSE 75; RESP 13; TEMP 98.1; O2SAT 97
--- NOTE | 2024-10-28 18:51 | DVHINCON2 ---
Date of service: Oct 28, [address] Jenkins Reason for Consultation Possible Park's palsy History of Present Illness Ms. Padilla is a 74 years old right-handed female with a history of dyslipidemia, she came to the [facility] on 10/28/2024 with a chief complaint of l eft-sided headache. At this time, he is alert and fully oriented, she provided the following history On 10/22/2024, she she woke in the morning with since slowly moving around her with associated general weakness, mild nausea, but no vomiting, gait distu rbance. Since 10/25/2024, she has swelling behind the left ear, and the pain in the left head, the skin behind the left ear, in the in the left occipital head region has been sensitive to touch, she also have intermittent headache, and the left face does not move when she smiles. Both eyes are watery. She reports mild hearing difficulty with the left ear She has had no recent chills, fever, nausea, vomiting, diarrhea, coughing, or other acute illness, no acute skin rashes, she has had no trauma, surgery, or vaccination recently, 199/90 mm Hg In the emergency room, her blood pressure was found to be very high Urinalysis, 10/28/2024: WBC: 6, urine leukocyte esterase: 1+ CBC, 10/28/2024: Unremarkable BMP 10/28/2024: Unremarkable TG/HDL/LDL/HDL, 12/11/2023: 142/201/113/61 Vitamin B12, 12/01/2023: 548 TSH, 12/11/2023: 0.98 FT4, 12/11/2023: 1.09 SIFE, 12/11/2023: No M protein Chest x-ray, 10/28/2024: No acute disease CT head, 10/28/24: No acute intracranial abnormality Past Medical History Dyslipidemia Past Surgical History Family History No major medical problems Social History She denies a history of drug, alcohol or drug abuse Allergies: Coded Allergies: Codeine (Verified Allergy, Unknown, 07/04/13) Iodine (Verified Allergy, Unknown, 07/04/13) Penicillins (Verified Allergy, Unknown, 07/04/13) Home Meds Reported Medications Atorvastatin Calcium (ATORVASTATIN CALCIUM) 10 Mg Tab, 1 TAB PO HS 10/28/24 Current Medications Current Medications Medications (Trade) Dose Ordered Sig/[place] Route PRN Reason Start Time Stop Time Status Last Admin Acetaminophen/ Hydrocodone Bitart ([place] 5/325MG Tab) 1 tab Q4HP PRN PO MODERATE PAIN (4-6 PAIN SCALE) 10/28/24 13:30 Ondansetron HCl (Zofran) 4 mg Q4HP PRN IV NAUSEA / VOMITING 10/28/24 13:30 Docusate Sodium (Colace Capsule) 100 mg BIDPRN PRN PO FOR CONSTIPATION 10/28/24 13:30 Acetaminophen (Tylenol Tablet) 650 mg Q6HP PRN PO PAIN SCALE 1-3 OR TEMP>100.4 10/28/24 13:30 Nitroglycerin (Ntrostat Sublingual) 0.4 mg Q5MINP PRN SL FOR CHEST PAIN 10/28/24 13:30 Morphine Sulfate 2 mg Q30M PRN IV FOR CHEST PAIN 10/28/24 13:30 Atorvastatin Calcium (Lipitor) 10 mg HS PO 10/28/24 22:00 Hydralazine HCl (Apresoline Injection) 10 mg Q6HP PRN IV SBP>150 10/28/24 17:45 Hydrochlorothiazide (hydroCHLOROthiazide TABLET) 25 mg DAILY PO 10/29/24 10:00 Methylprednisolone Sodium Succinate (Solu Medrol) 40 mg BID IV 10/28/24 22:00 Review of Systems As above, the other systems are negative Vital Signs Vital Signs Date Time Temp Pulse Resp B/P (MAP) Pulse Ox O2 Delivery O2 Flow Rate FiO2 10/28/24 17:20 98.1 75 13 151/64 (93) 97 98.1 10/28/24 17:08 Room Air* 0 21 Physical Exam GENERAL EXAM: General: the patient is well developed and nourished. No acute distress. HEENT: Normocephalic, neck is supple, no carotid bruits. No mass. RESPIRATORY: Normal respiratory effort with symmetrical lung expansion. Lungs clear to auscultation. CARDIOVASCULAR: Regular rate and rhythm with no murmurs. S1, S2. ABDOMEN: Soft, nontender, normal bowel sound NEUROLOGICAL: MENTAL STATUS: Awake and alert. Oriented to person, place, time and general circumstances. Able to give personal history. SPEECH, LANGUAGE, HIGHER CORTICAL FUNCTION: no aphasia or dysathria. CRANIAL NERVES: #2: Intact visual roblero to confrontation. The optic discs were sharp. #3,4,6: Pupils are equal, round and reactive. EOMs full and conjugate. Mild bilateral gaze evoked nystagmus. #5: Diminished pinprick and light touch in the left face. Light touch is perceived as painful stimuli behind the left year, and in the left occipital and some part of parietal regions. Mandibular strength intact. #7: Weakness in bilateral face with lower motor neuron pattern, left-sided weaker, she is able to close both eyes completely. Diminished taste in the left tongue #8: Hearing is diminished to finger rubbing in the left ear. #9,10: Uvula and soft palate rise in the midline. Swallow and voice are normal. #11: Trapezius and sternomastoid strength intact bilaterally. #12: Tongue midline. No fasciculations or atrophy. SENSATION: Unremarkable pinprick and light touch MOTOR: Normal tone in the upper and lower extremity. Normal muscle bulk. No fasciculations. No abnormal movements or posturing. Muscle strength of the major groups in the upper left upper extremity is slightly diminished REFLEXES: Deep tendon reflexes normal and symmetrical. No pathological reflexes. CEREBELLAR/COORDINATION: Finger to nose is normal bilaterally. GAIT/STATION: deferred. Labs/Diagnostic Data Labs Test 10/28/24 14:38 10/28/24 09:23 10/28/24 08:42 Range/Units Troponin I High Sensitivity 8 </=34 ng/L White Blood Count 7.8 4.4-10.8 10^3/uL Red Blood Count 5.63 H 4.0-5.20 10^6/uL Hemoglobin 15.2 12.2-16.2 g/dL Hematocrit 45.4 36.0-46.0 % Mean Corpuscular Volume 80.6 80.0-100.0 fL Mean Corpuscular Hemoglobin 27.0 L 28.0-32.0 pg Mean Corpuscular Hemoglobin Concent 33.5 32.0-36.0 g/dL Red Cell Distribution Width 14.1 11.8-14.3 % Platelet Count 230 140-450 10^3/uL Mean Platelet Volume 7.7 6.9-10.8 fL Neutrophils (%) (Auto) 61.9 37.0-80.0 % Lymphocytes (%) (Auto) 29.0 10.0-50.0 % Monocytes (%) (Auto) 5.7 0.0-12.0 % Eosinophils (%) (Auto) 2.9 0.0-7.0 % Basophils (%) (Auto) 0.5 0.0-2.0 % Neutrophils # (Auto) 4.8 1.6-8.6 10 ^3/uL Lymphocytes # (Auto) 2.3 0.4-5.4 10 ^3/uL Monocytes # (Auto) 0.4 0-1.3 10 ^3/uL Eosinophils # (Auto) 0.2 0-0.8 10 ^3/uL Basophils # (Auto) 0 0-0.2 10 ^3/uL Nucleated Red Blood Cells 0.0 % Sodium Level 142 136-145 mmol/L Potassium Level 4.1 3.5-5.1 mmol/L Chloride Level 108 H 98-107 mmol/L Carbon Dioxide Level 23 20-31 mmol/L Anion Gap 11 5-15 Blood Urea Nitrogen 11 9-23 mg/dL Creatinine 0.87 0.550-1.02 mg/dL Glomerular Filtration Rate Calc 69 >90 mL/min BUN/Creatinine Ratio 12.6 10.0-20.0 Serum Glucose 103 74-106 mg/dL Calcium Level 10.0 8.7-10.4 mg/dL Urine Color Colorless Yellow Urine Clarity Clear Clear Urine pH 7.0 5.0-9.0 Urine Specific [place] 1.007 1.001-1.035 Urine Protein Negative Negative Urine Ketones Negative Negative Urine Blood Negative Negative /uL Urine Nitrite Negative Negative Urine Bilirubin Negative Negative Urine Urobilinogen Normal Negative mg/dL Urine Leukocyte Esterase 1+ Negative /uL Urine RBC 2 0 - 4 /hpf Urine Microscopic WBC 6 H 0-5 /HPF Urine Squamous Epithelial Cells None seen <5 /hpf Urine Bacteria None seen None Seen /hpf Urine Glucose Normal Normal mg/dL Assessment Acute bilateral facial weakness with left-sided more affected ? Bilateral Park's palsy ? [place] Hartman syndrome ? Guillain-[place]field syndrome, less likely Other inflammatory disorder Acute left ear hearing loss Acute left facial weakness Acute vertigo Hypertensive urgency Posterior reversible encephalopathy syndrome Plan/Recommendation Monitoring Supportive treatment Telemetry MAXIMILIAN MRI brain wwo Stabilize blood pressure More recommendation per clinical course Progress: Poor This medical document was created using an electronic medical record system with Dragon computerized dictation system. Although this document has been carefully reviewed, there may still be some phonetic and typographical errors. These areas are purely typographical due to imperfections of the software programs, and do not reflect any compromise in the patient's medical care. Plan discussed with: Patient, Other SOPHIA MCQUEEN MD Oct 28, 2024 18:51
[2024-10-28] MEDS ORDERED: LORazepam 2MG/ML-1ML VIAL IV PRN (20:45)
[2024-10-28 21:40] VITALS: BP 161/73; TEMP 97.7; O2SAT 97
[2024-10-28 21:46] VITALS: BP 137/71; TEMP 97.5; O2SAT 98
[2024-10-28] MEDS: hydrALAZINE HCL 20 MG/ML VL IV PRN (21:57)
[2024-10-28] MEDS: methylPREDNISolone SOD SUCC 40 MG/ML VL IV SCH (22:00)
[2024-10-28] MEDS: ACETAMINOPHEN 325 MG TAB PO PRN (22:39)
[2024-10-28] MEDS: ATORVASTATIN 20 MG TAB PO SCH (22:39)
[2024-10-29] MEDS: HYDROcodone-ACET 5/325MG TAB PO PRN (03:09)
[2024-10-29 05:00] VITALS: BP 128/61; PULSE 63; RESP 17; TEMP 97.6; O2SAT 97
[2024-10-29] MEDS: ONDANSETRON HCL 4 MG/2 ML VIAL IV PRN (05:08)
[2024-10-29 06:45] LABS: Hematocrit 45.9 % (36.0-46.0); Hemoglobin 15.5 g/dL (12.2-16.2); Mean Corpuscular Hemoglobin 27.0 pg (28.0-32.0); Mean Corpuscular Volume 80.0 fL (80.0-100.0); Nucleated Red Blood Cells % 0.2 %
[2024-10-29 07:00] LABS: Alanine Aminotransferase 17 U/L (7-40); Alkaline Phosphatase 76 U/L (46-116); Anion Gap 15 (5-15); BUN/Creatinine Ratio 12.6 (10.0-20.0); Blood Urea Nitrogen 11 mg/dL (9-23); Calcium 9.8 mg/dL (8.7-10.4); Carbon Dioxide 19 mmol/L (20-31); Chloride 102 mmol/L (98-107); Glucose 111 mg/dL (74-106); Potassium 3.4 mmol/L (3.5-5.1); Sodium 136 mmol/L (136-145); Total Protein 7.9 g/dL (5.7-8.2)
[2024-10-29 07:01] LABS: Albumin 4.8 g/dL (3.2-4.8); Bilirubin, Total 1.5 mg/dL (0.2-1.0)
[2024-10-29 08:00] VITALS: PULSE 77; PULSE 78; RESP 17; O2SAT 97
[2024-10-29 08:40] VITALS: BP 142/85; PULSE 78; RESP 17; TEMP 98.2; O2SAT 97
[2024-10-29] MEDS ORDERED: GADOTERATE MEG 10 MMOL/20ml INJ (0.5MMOL/ml) IV ONE (08:42)
--- NOTE | 2024-10-29 08:55 | DVHPN2 ---
Progress Note - Dictate Date Seen: Oct 29, 2024 Medical Necessity Reason Pt with a Central, PICC or Fol: No Subjective Ms. Padilla is a 74 years old right-handed female with a history of dyslipidemia, she came to the [facility] [place] on 10/28/2024 with a chief complaint of left-sided headache. I have seen and examined the patient, talked to her nurse, her in the room with her. She is doing fine, no new complaints, the right face is stronger today. She reports no weakness extremities, no dysphagia She Refused steroid concerning liquid retention At this time, he is alert and fully oriented, she provided the following history Urinalysis, 10/28/2024: WBC: 6, urine leukocyte esterase: 1+ CBC, 10/28/2024: Unremarkable BMP 10/28/2024: Unremarkable HCO3 10/28/2024: 23, 10/29/2024: 19 TG/HDL/LDL/HDL, 12/11/2023: 142/201/113/61 Vitamin B12, 12/01/2023: 548 TSH, 12/11/2023: 0.98 FT4, 12/11/2023: 1.09 SIFE, 12/11/2023: No M protein Chest x-ray, 10/28/2024: No acute disease CT head, 10/28/24: No acute intracranial abnormality vital signs Vital Sign Date Time Temp Pulse Resp B/P (MAP) Pulse Ox O2 Delivery O2 Flow Rate FiO2 10/29/24 08:40 98.2 78 17 142/85 (104) 97 98.2 10/28/24 17:08 Room Air* 0 21 Total Intake and Output 10/28/24 10/28/24 10/29/24 15:00 23:00 07:00 Intake Total 350 ml Balance 350 ml medications Current Medications Medications Dose Ordered Sig/[place] Route Start Time Stop Time Status Last Admin Dose Admin Acetaminophen/ Hydrocodone Bitart 1 tab Q4HP PRN PO 10/28/24 13:30 10/29/24 03:09 1 TAB Ondansetron HCl 4 mg Q4HP PRN IV 10/28/24 13:30 10/29/24 05:08 4 MG Docusate Sodium 100 mg BIDPRN PRN PO 10/28/24 13:30 Acetaminophen 650 mg Q6HP PRN PO 10/28/24 13:30 10/28/24 22:39 650 MG Nitroglycerin 0.4 mg Q5MINP PRN SL 10/28/24 13:30 Morphine Sulfate 2 mg Q30M PRN IV 10/28/24 13:30 Atorvastatin Calcium 10 mg HS PO 10/28/24 22:00 10/28/24 22:39 10 MG Hydralazine HCl 10 mg Q6HP PRN IV 10/28/24 17:45 10/28/24 21:57 10 MG Hydrochlorothiazide 25 mg DAILY PO 10/29/24 10:00 Methylprednisolone Sodium Succinate 40 mg BID IV 10/28/24 22:00 Lorazepam 1 mg ONCE PRN IV 10/28/24 20:45 objective General: the patient is well developed and nourished. No acute distress. MENTAL STATUS: Awake and alert. Oriented to person, place, time and general circumstances. Able to give personal history. SPEECH, LANGUAGE, HIGHER CORTICAL FUNCTION: no aphasia or dysathria. CRANIAL NERVES: Pupils are equal, round and reactive. EOMs full and conjugate. Mild bilateral gaze evoked nystagmus. Diminished pinprick and light touch in the left face. Light touch is perceived as painful stimuli behind the left year, and in the left occipital and some part of parietal regions. Mandibular strength intact. Weakness in bilateral face with lower motor neuron pattern, left-sided weaker, she is able to close both eyes completely. Diminished taste in the left tongue. Hearing is diminished to finger rubbing in the left ear. Tongue midline. No fasciculations or atrophy. SENSATION: Unremarkable pinprick and light touch MOTOR: Normal tone in the upper and lower extremity. Normal muscle bulk. No fasciculations. No abnormal movements or posturing. Muscle strength of the major groups in the upper left upper extremity is slightly diminished REFLEXES: Deep tendon reflexes are symmetrical, 1-2/4 in the arms, 1/4 in the knees, trace in the ankles. No pathological reflexes. CEREBELLAR/COORDINATION: Finger to nose is normal bilaterally. GAIT/STATION: deferred. laboratory and microbiology Laboratory Tests 10/29/24 05:24 Test 10/29/24 05:24 Range/Units Serum Glucose 111 H 74-106 mg/dL Problem List Acute bilateral facial weakness with left-sided more affected ? Bilateral Park's palsy ? Sunita Hartman syndrome ? Guillain-[place] syndrome, less likely Other inflammatory disorder Acute left ear hearing loss Acute left facial weakness Acute vertigo Hypertensive urgency Posterior reversible encephalopathy syndrome Assessment/Plan Monitoring Supportive treatment Telemetry MAXIMILIAN MRI brain wwo Stabilize blood pressure She is not interested in steroid treatment More recommendation per clinical course This medical document was created using an electronic medical record system with [employer] dictation system. Although this document has been carefully reviewed, there may still be some phonetic and typographical errors. These areas are purely typographical due to imperfections of the software programs, and do not reflect any compromise in the patient's medical care. Prognosis poor Plan discussed with: Patient, Spouse, Other Total Time (mins): 35 SOPHIA MCQUEEN MD Oct 29, 2024 08:55
[2024-10-29] MEDS: hydroCHLOROthiazide 25 MG TAB PO SCH (10:02)
--- NOTE | 2024-10-29 10:13 | DVH ---
PROCEDURE: MRI BRAIN HEAD WO W CONTRAST INDICATION: Inflammatory white matter disease EXAM DATE: 10/29/2024 08:45 AM COMPARISON: None TECHNIQUE: MRI of the brain without and with intravenous contrast. FINDINGS: Diffusion weighted images of the brain demonstrate no evidence of acute infarction. There is no evidence of acute intracranial hemorrhage, extra-axial collection, mass effect, midline s hift, herniation or hydrocephalus. The ventricles, sulci and cisterns appear age appropriate. There is nonspecific periventricular and subcortical T2/FLAIR hyperintense white matter changes. Diff erential includes: Demyelinating disease, chronic microangiopathic change, residua of migraine headac hes or other postinflammatory residua. There are no signal abnormalities on the susceptibility weighted sequences. The major vascular flow voids are present. The visualized paranasal sinuses and mastoid air cells are clear. The surrounding soft tissues and o sseous structures are unremarkable. IMPRESSION: No evidence of acute infarction, intracranial hemorrhage, mass effect or hydrocephalus. There is nonspecific periventricular and subcortical T2/FLAIR hyperintense white matter changes. Diff erential includes: Demyelinating disease, chronic microangiopathic change, residua of migraine headac hes or other postinflammatory residua.
--- NOTE | 2024-10-29 11:18 | DVHPN2 ---
Progress Note Date Seen: Oct 29, 2024 Medical Necessity Reason Pt with a Central, PICC or Fol: No Subjective Patient reports: No new complaints Review of Systems: HEENT:Normal, CVS:Normal, RESPIRATORY:Normal, GI:Normal, :Normal, MSK:Normal, NEURO:Normal Objective vital signs Vital Sign Date Time Temp Pulse Resp B/P (MAP) Pulse Ox O2 Delivery O2 Flow Rate FiO2 10/29/24 10:02 142/85 10/29/24 08:40 98.2 78 17 97 98.2 10/29/24 08:00 Room Air* 0 21 Total Intake and Output 10/28/24 10/28/24 10/29/24 15:00 23:00 07:00 Intake Total 350 ml Balance 350 ml medications Current Medications Medications Dose Ordered Sig/[place] Route Start Time Stop Time Status Last Admin Dose Admin Acetaminophen/ Hydrocodone Bitart 1 tab Q4HP PRN PO 10/28/24 13:30 10/29/24 03:09 1 TAB Ondansetron HCl 4 mg Q4HP PRN IV 10/28/24 13:30 10/29/24 05:08 4 MG Docusate Sodium 100 mg BIDPRN PRN PO 10/28/24 13:30 Acetaminophen 650 mg Q6HP PRN PO 10/28/24 13:30 10/28/24 22:39 650 MG Nitroglycerin 0.4 mg Q5MINP PRN SL 10/28/24 13:30 Morphine Sulfate 2 mg Q30M PRN IV 10/28/24 13:30 Atorvastatin Calcium 10 mg HS PO 10/28/24 22:00 10/28/24 22:39 10 MG Hydralazine HCl 10 mg Q6HP PRN IV 10/28/24 17:45 10/28/24 21:57 10 MG Hydrochlorothiazide 25 mg DAILY PO 10/29/24 10:00 10/29/24 10:02 25 MG Methylprednisolone Sodium Succinate 40 mg BID IV 10/28/24 22:00 Lorazepam 1 mg ONCE PRN IV 10/28/24 20:45 Examination: GENERAL:Normal, HEENT:Normal, NECK:Normal, LUNGS:Normal, CVS:Normal, ABDOMEN:Normal, MSK:Normal, SKIN:Normal, NEURO:Normal, NEURO:Abnormal (left facial weakness), :Normal laboratory and microbiology Laboratory Tests 10/29/24 05:24 Test 10/29/24 05:24 Range/Units Serum Glucose 111 H 74-106 mg/dL Problem List/Assessment/Plan Problem List/Assessment/Plan #1 ? Park's palsy: refusing steroids #2 htn #3 hyperlipidemia advance care planning- full code- time spent 19 mins Plan discussed with: Patient, Spouse Date of Service: Oct 29, 2024 Billing Provider: ESTER VELASQUEZ MD Common Visit Codes: [id number] INP/OBS CARE(HIGH) Secondary Visit Codes: [id number] CARE PLAN 30 MINUTES ESTER VELASQUEZ MD Oct 29, 2024 11:18
[2024-10-29] MEDS: POTASSIUM CHL 20 Meq TABLET PO ONE (12:37)
[2024-10-29 13:16] VITALS: BP 143/74; PULSE 80; RESP 17; TEMP 98.4; O2SAT 96
[2024-10-29 20:00] VITALS: PULSE 76
[2024-10-29] MEDS: hydroCHLOROthiazide 25 MG TAB PO ONE (20:28)
[2024-10-29 21:00] VITALS: BP 122/71; PULSE 77; RESP 18; TEMP 98; O2SAT 96
[2024-10-30 05:00] VITALS: BP 134/67; PULSE 60; RESP 16; TEMP 98.1; O2SAT 96
[2024-10-30 06:52] LABS: Chloride 105 mmol/L (98-107); Potassium 3.8 mmol/L (3.5-5.1); Sodium 137 mmol/L (136-145)
[2024-10-30 06:53] LABS: Anion Gap 10 (5-15); Carbon Dioxide 22 mmol/L (20-31)
[2024-10-30 06:54] LABS: Calcium 9.5 mg/dL (8.7-10.4)
[2024-10-30 06:58] LABS: BUN/Creatinine Ratio 12.6 (10.0-20.0); Blood Urea Nitrogen 13 mg/dL (9-23); Glucose 90 mg/dL (74-106)
[2024-10-30 08:00] VITALS: PULSE 63; PULSE 76; RESP 17; O2SAT 96
[2024-10-30 08:43] VITALS: BP 120/67; PULSE 63; RESP 17; TEMP 97.1; O2SAT 96
--- NOTE | 2024-10-30 09:39 | DVHPN2 ---
Progress Note - Dictate Date Seen: Oct 30, 2024 Medical Necessity Reason Pt with a Central, PICC or Fol: No Subjective MsSyl Padilla is a 74 years old right-handed female with a history of dyslipidemia, she came to the [facility] on 10/28/2024 with a chief complaint of left-sided headache. I have seen and examined the patient, talked to her nurse, her in the room with her. She keeps improving, she reports better, and physical examination confirmed improving bilateral facial muscle weakness. The back by left-handed occipital region is not sensitive to touch Deep tendon reflexes is close to 2/4 in the upper extremities She had to leave for [id number] soon for 10 days. Urinalysis, 10/28/2024: WBC: 6, urine leukocyte esterase: 1+ CBC, 10/28/2024: Unremarkable ESR, 10/29/24: 8 CRP, 10/29/2024: 0.4 BMP 10/28/2024: Unremarkable HCO3 10/28/2024: 23, 10/29/2024: 19 TG/HDL/LDL/HDL, 12/11/2023: 142/201/113/61 Vitamin B12, 12/01/2023: 548 TSH, 12/11/2023: 0.98 FT4, 12/11/2023: 1.09 SIFE, 12/11/2023: No M protein Chest x-ray, 10/28/2024: No acute disease CT head, 10/28/24: No acute intracranial abnormality MRI head wwo 10/29/2024: No evidence of acute infarction, intracranial hemorrhage, mass effect or hydrocephalus. There is nonspecific periventricular and subcortical T2/FLAIR hyperintense white matter changes. Differential includes: Demyelinating disease, chronic microangiopathic change, residua of migraine headaches or other postinflammatory residua. vital signs Vital Sign Date Time Temp Pulse Resp B/P (MAP) Pulse Ox O2 Delivery O2 Flow Rate FiO2 10/30/24 08:43 97.1 63 17 120/67 (84) 96 97.1 10/29/24 20:00 Room Air* 0 21 Total Intake and Output 10/29/24 10/29/24 10/30/24 15:00 23:00 07:00 Intake Total 1000 ml 675 ml Output Total 400 ml Balance 1000 ml 275 ml medications Current Medications Medications Dose Ordered Sig/[place] Route Start Time Stop Time Status Last Admin Dose Admin Acetaminophen/ Hydrocodone Bitart 1 tab Q4HP PRN PO 10/28/24 13:30 10/29/24 03:09 1 TAB Ondansetron HCl 4 mg Q4HP PRN IV 10/28/24 13:30 10/29/24 05:08 4 MG Docusate Sodium 100 mg BIDPRN PRN PO 10/28/24 13:30 Acetaminophen 650 mg Q6HP PRN PO 10/28/24 13:30 10/29/24 15:56 650 MG Nitroglycerin 0.4 mg Q5MINP PRN SL 10/28/24 13:30 Morphine Sulfate 2 mg Q30M PRN IV 10/28/24 13:30 Atorvastatin Calcium 10 mg HS PO 10/28/24 22:00 10/29/24 21:57 10 MG Hydralazine HCl 10 mg Q6HP PRN IV 10/28/24 17:45 10/28/24 21:57 10 MG Hydrochlorothiazide 25 mg DAILY PO 10/29/24 10:00 10/29/24 10:02 25 MG Methylprednisolone Sodium Succinate 40 mg BID IV 10/28/24 22:00 Lorazepam 1 mg ONCE PRN IV 10/28/24 20:45 Potassium Chloride 20 meq DAILY PO 10/30/24 10:00 objective General: the patient is well developed and nourished. No acute distress. MENTAL STATUS: Awake and alert. Oriented to person, place, time and general circumstances. Able to give personal history. SPEECH, LANGUAGE, HIGHER CORTICAL FUNCTION: no aphasia or dysathria. CRANIAL NERVES: Pupils are equal, round and reactive. EOMs full and conjugate. no nystagmus. Sensory examination is unremarkable in the face. Mandibular strength intact. Weakness in bilateral face with lower motor neuron pattern, left-sided weaker, she is able to close both eyes completely. Tongue midline. No fasciculations or atrophy. SENSATION: Unremarkable pinprick and light touch MOTOR: Normal tone in the upper and lower extremity. Normal muscle bulk. No fasciculations. No abnormal movements or posturing. Muscle strength of the major groups in the upper left upper extremity is slightly diminished REFLEXES: Deep tendon reflexes are symmetrical, close to 2/4 in the arms, 1/4 in the knees, trace in the ankles. No pathological reflexes. CEREBELLAR/COORDINATION: Finger to nose is normal bilaterally. GAIT/STATION: deferred. laboratory and microbiology Laboratory Tests 10/30/24 05:34 10/29/24 05:24 Test 10/30/24 05:34 Range/Units Serum Glucose 90 74-106 mg/dL Problem List Acute bilateral facial weakness with left-sided more affected Bilateral Park's palsy ? Sunita Hartman syndrome ? Guillain-[place] syndrome, less likely Other inflammatory disorder Acute left ear hearing loss Acute left facial weakness Acute vertigo Hypertensive urgency Posterior reversible encephalopathy syndrome Assessment/Plan Monitoring Supportive treatment Telemetry MAXIMILIAN She is not interested in steroid treatment Does not need antiviral medication More recommendation per clinical course Okay to discharge from neurologic point of view The case was discussed with Dr. Gustafson This medical document was created using an electronic medical record system with [employer] dictation system. Although this document has been carefully reviewed, there may still be some phonetic and typographical errors. These areas are purely typographical due to imperfections of the software programs, and do not reflect any compromise in the patient's medical care. Prognosis poor Plan discussed with: Patient, Spouse SOPHIA MCQUEEN MD Oct 30, 2024 09:39
[2024-10-30] MEDS: POTASSIUM CHL 20 Meq TABLET PO SCH (10:13)
[2024-10-30] MEDS ORDERED: AMLO1TAB22 PO (11:37)
--- NOTE | 2024-10-30 11:37 | DVHDS2 ---
Discharge Summary Date of Admission Oct 28, 2024 at 13:28 Date of Discharge: Oct 30, 2024 Labs/Diagnostic Data: Laboratory Results Test 10/30/24 05:34 10/29/24 08:55 10/29/24 05:24 10/28/24 22:47 Sodium Level 137 mmol/L (136-145) Potassium Level 3.8 mmol/L (3.5-5.1) Chloride Level 105 mmol/L (98-107) Carbon Dioxide Level 22 mmol/L (20-31) Anion Gap 10 (5-15) Blood Urea Nitrogen 13 mg/dL (9-23) Creatinine 1.03 mg/dL (0.550-1.02) Glomerular Filtration Rate Calc 57 mL/min (>90) BUN/Creatinine Ratio 12.6 (10.0-20.0) Serum Glucose 90 mg/dL (74-106) Calcium Level 9.5 mg/dL (8.7-10.4) Erythrocyte Sedimentation Rate 8 mm/hr (0-20) C-Reactive Protein High Sensitivity 0.40 mg/dL (<1.0) White Blood Count 11.3 10^3/uL (4.4-10.8) Red Blood Count 5.74 10^6/uL (4.0-5.20) Hemoglobin 15.5 g/dL (12.2-16.2) Hematocrit 45.9 % (36.0-46.0) Mean Corpuscular Volume 80.0 fL (80.0-100.0) Mean Corpuscular Hemoglobin 27.0 pg (28.0-32.0) Mean Corpuscular Hemoglobin Concent 33.7 g/dL (32.0-36.0) Red Cell Distribution Width 14.2 % (11.8-14.3) Platelet Count 259 10^3/uL (140-450) Mean Platelet Volume 8.0 fL (6.9-10.8) Neutrophils (%) (Auto) 54.7 % (37.0-80.0) Lymphocytes (%) (Auto) 37.8 % (10.0-50.0) Monocytes (%) (Auto) 4.9 % (0.0-12.0) Eosinophils (%) (Auto) 2.2 % (0.0-7.0) Basophils (%) (Auto) 0.4 % (0.0-2.0) Neutrophils # (Auto) 6.2 10 ^3/uL (1.6-8.6) Lymphocytes # (Auto) 4.3 10 ^3/uL (0.4-5.4) Monocytes # (Auto) 0.5 10 ^3/uL (0-1.3) Eosinophils # (Auto) 0.3 10 ^3/uL (0-0.8) Basophils # (Auto) 0 10 ^3/uL (0-0.2) Nucleated Red Blood Cells 0.2 % Total Bilirubin 1.5 mg/dL (0.2-1.0) Aspartate Amino Transferase (AST) 22 U/L (13-40) Alanine Aminotransferase (ALT) 17 U/L (7-40) Alkaline Phosphatase 76 U/L (46-116) Total Protein 7.9 g/dL (5.7-8.2) Albumin 4.8 g/dL (3.2-4.8) Test 10/28/24 14:38 10/28/24 08:42 Troponin I High Sensitivity 8 ng/L (</=34) Urine Color Colorless (Yellow) Urine Clarity Clear (Clear) Urine pH 7.0 (5.0-9.0) Urine Specific [place] 1.007 (1.001-1.035) Urine Protein Negative (Negative) Urine Ketones Negative (Negative) Urine Blood Negative /uL (Negative) Urine Nitrite Negative (Negative) Urine Bilirubin Negative (Negative) Urine Urobilinogen Normal mg/dL (Negative) Urine Leukocyte Esterase 1+ /uL (Negative) Urine RBC 2 /hpf (0 - 4) Urine Microscopic WBC 6 /HPF (0-5) Urine Squamous Epithelial Cells None seen /hpf (<5) Urine Bacteria None seen /hpf (None Seen) Urine Glucose Normal mg/dL (Normal) Other Laboratory Tests 10/30/24 05:34 10/29/24 05:24 Brief Hx & Hospital Course: see dictated note Condition at Discharge: Fair Final Diagnosis/Problems List bells palsy Discharge Disposition: Home Discharge Instruct/Medications Diet: Cardiac 2g Na,low cholest Activity: No Restrictions, As Tolerated Follow Up/Referral: fu with pcp in 2 wks Medications: resume home meds script to pharmacy Scheduled Atorvastatin Calcium (Atorvastatin Calcium), 1 TAB PO HS, (Reported) Discharge Statement: "Patient was advised to return to the ER or call 911 if any headaches, dizziness, shortness of breath, chest pain, abdominal pain, bleeding, fevers, or worsening of medical condition. Patient was counseled about treatment plan, medications, possible side effects, patientverbalized understanding. All questions were answered to the best of my ability. This discharge took greater then 30 minutes in planning, reviewing documentation, counseling the patient, and discussing with other team members." ASSESSMENT ASSESSMENT Assessment bells palsy Date of Service: Oct 30, 2024 Billing Provider: ESTER VELASQUEZ MD Common Visit Codes: 93398-EHS/OBS DISCH DAY >30min ESTER VELASQUEZ MD Oct 30, 2024 11:37
--- NOTE | 2024-10-30 11:52 | DVHDS ---
DATE OF DISCHARGE: 10/30/2024 HISTORY OF PRESENT ILLNESS: The patient is a 74-year-old lady who is admitted with history of left facial droop and has history of hyperlipidemia. HOSPITAL COURSE: The patient had elevated blood pressure of 186/104. The patient was seen in neurology consult by Dr. Daniel. Brain MRI showed nonspecific periventricular white matter changes. The patient had troponin levels that were negative for acute RI. The patient's MAXMIILIAN levels are currently pending. She has now been cleared for discharge by Dr. Daniel. She refused her steroids while in the hospital. As per my discussion with the patient and , she is to monitor blood pressure and will start on amlodipine 5 mg daily if her pressure is elevated. She will continue her hyperlipidemia medication. She will follow up with Dr. Wright in the next 1-2 weeks. 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 * Hypertensive urgency. * Hyperlipidemia. Time spent in discharge planning and review of plan with the patient and nursing was 37 minutes. MD MARCOS Garcia/ULISES TID: [id number] RECEIPT: [id number]
[2024-10-30 13:00] VITALS: BP 114/76; PULSE 71; RESP 17; TEMP 97.7; O2SAT 96
== END 2024-10-30 15:05 | disposition home or self-care (01) | DRG 73 ==
LOC: ER 08:29 → OVERFLOW 13:28 → TELE-WESTW 23:52
PROVIDERS: ADMIT Internal Medicine; ATTEND Internal Medicine
DX: G51.0 Bell's palsy (principal); I67.83 Posterior reversible encephalopathy syndrome; B02.21 Postherpetic geniculate ganglionitis; E78.5 Hyperlipidemia, unspecified; H91.92 Unspecified hearing loss, left ear; G43.909 Migraine, unspecified, not intractable, without status migrainosus; Z90.710 Acquired absence of both cervix and uterus; Z90.49 Acquired absence of other specified parts of digestive tract; Z98.891 History of uterine scar from previous surgery; Z88.5 Allergy status to narcotic agent; Z88.0 Allergy status to penicillin; Z79.899 Other long term (current) drug therapy; I16.0 Hypertensive urgency
CPT/HCPCS: 36415; 70450; 70553; 71045; 80048; 80053; 81001; 82164; 84484; 85025; 85652; 86141; 96361; 96374; 99291; G0378; J2405; J7060

== ENCOUNTER → 2024-11-22 | Outpatient (CLI) | payer MEDICARE, OTHER ==
[~2024-11-22] MED LIST: AMLO1TAB22 PO; ATOR10TA52 PO
[2024-11-22 10:58] LABS: Hematocrit 44.6 % (36.0-46.0); Hemoglobin 14.9 g/dL (12.2-16.2); Mean Corpuscular Hemoglobin 27.1 pg (28.0-32.0); Mean Corpuscular Volume 81.0 fL (80.0-100.0); Nucleated Red Blood Cells % 0.2 %
[2024-11-22 11:14] LABS: Urine Protein, UAD Negative (Negative)
[2024-11-22 11:39] LABS: Alanine Aminotransferase 21 U/L (7-40); Albumin 4.6 g/dL (3.2-4.8); Alkaline Phosphatase 92 U/L (46-116); Anion Gap 10 (5-15); BUN/Creatinine Ratio 16.9 (10.0-20.0); Bilirubin, Total 0.8 mg/dL (0.2-1.0); Blood Urea Nitrogen 15 mg/dL (9-23); Carbon Dioxide 25 mmol/L (20-31); Chloride 104 mmol/L (98-107); Cholesterol 185 mg/dL (< 200); Glucose 103 mg/dL (74-106); Potassium 4.0 mmol/L (3.5-5.1); Sodium 139 mmol/L (136-145); Total Protein 7.6 g/dL (5.7-8.2)
[2024-11-22 11:40] LABS: HDL Cholesterol 62 mg/dL (40-59); Triglycerides 157 mg/dL (< 150)
[2024-11-22 11:49] LABS: Calcium 9.4 mg/dL (8.7-10.4)
== END | disposition home or self-care (01) ==
LOC: LAB 09:00
PROVIDERS: ATTEND Internal Medicine
DX: E78.00 Pure hypercholesterolemia, unspecified (principal); J45.909 Unspecified asthma, uncomplicated; E55.9 Vitamin D deficiency, unspecified
CPT/HCPCS: 36415; 80053; 80061; 81001; 82306; 84439; 84443; 85025; 85652